=== PATIENT | female | born 1995 | race Caucasian/White ===

== ENCOUNTER 2017-09-16 10:51 | Inpatient (IN) | payer MEDICAID ==
[~2017-09-16 10:51] MED LIST: OXYTOCIN 10 UNIT INJ
[2017-09-16] MEDS ORDERED: METHYLERGONOVINE 0.2 MG INJ IM ×2 (11:30→21:00)
[2017-09-16] MEDS ORDERED: CARBOPROST 250 MCG INJ IM ×2 (11:30→21:00)
[2017-09-16] MEDS ORDERED: OXYTOCIN 30 UNITS/LR 500 ML IV ×3 (11:30→21:00)
[2017-09-16] MEDS ORDERED: MISOPROSTOL 200 MCG TAB PR ×2 (11:30→21:00)
[2017-09-16 11:41] LABS: ADD MAN DIFF? NO
[2017-09-16 11:47] LABS: WHITE BLOOD COUNT 6.7 10^3/ul (4.8-10.8)
[2017-09-16 11:47] LABS: BASOPHILS % 0.4 % (0.0-2.0); EOSINOPHILS % 0.4 % (0.0-7.0); HEMATOCRIT 38.4 % (37.0-47.0); HEMOGLOBIN 12.6 g/dl (12.0-16.0); LYMPHOCYTES # 1.9 10^3/ul (0.8-2.9); LYMPHOCYTES % 27.4 % (15.0-51.0); MEAN CORPUSCULAR HEMOGLOBIN 29.7 pg (29.0-33.0); MEAN CORPUSCULAR HGB CONC 32.8 g/dl (32.0-37.0); MEAN CORPUSCULAR VOLUME 90.6 fl (82.0-101.0); MONOCYTE # 0.3 10^3/ul (0.3-0.9); MONOCYTES % 4.2 % (0.0-11.0); NEUTROPHIL # 4.5 10^3/ul (1.6-7.5); NEUTROPHILS % 67.2 % (39.0-77.0); PLATELET COUNT 141 10^3/UL (140-415); RED BLOOD COUNT 4.24 10^6/ul (4.20-5.40); RED CELL DISTRIBUTION WIDTH 14.7 % (11.5-14.5)
[2017-09-16] MEDS: LACTATED RINGER'S 1,000 ML IV ×3 (11:52→21:15)
[2017-09-16 12:19] LABS: INR 0.93; PROTIME 12.6 Sec (11.9-14.9)
[2017-09-16 12:20] LABS: PARTIAL THROMBOPLASTIN TIME 27.6 Sec (25.0-35.0)
[2017-09-16 12:50] LABS: HEPATITIS B SURFACE ANTIGEN NEGATIVE (NEGATIVE)
[2017-09-16] MEDS ORDERED: EPHEDrine SULFATE 50 MG/5 ML SYG (15:07)
[2017-09-16] MEDS ORDERED: OXYTOCIN 10 UNIT INJ (15:07)
[2017-09-16] MEDS ORDERED: METOCLOPRAMIDE 10 MG INJ (15:07)
[2017-09-16] MEDS ORDERED: morphine SULFATE/PF (10 MG/10 ML) INJ (15:07)
[2017-09-16] MEDS ORDERED: ONDANSETRON 4 MG INJ (15:07)
[2017-09-16] MEDS ORDERED: DIPHENHYDRAMINE 50 MG INJ IV (17:00)
[2017-09-16] MEDS ORDERED: NALOXONE (0.4 MG/ML) INJ IV (17:00)
[2017-09-16] MEDS ORDERED: morphine 2 MG INJ IV ×2 (17:00)
[2017-09-16] MEDS ORDERED: EPHEDrine SULFATE 50 MG/5 ML SYG IV (17:00)
[2017-09-16] MEDS ORDERED: ONDANSETRON 4 MG INJ IV (17:00)
[2017-09-16] MEDS: OXYTOCIN 30 UNITS/LR 500 ML IV (17:14)
[2017-09-16] MEDS: CEFAZOLIN 2 GM/50 ML (PMX) 50 ML IVPB (17:23)
[2017-09-16] MEDS: morphine SULFATE/PF (10 MG/10 ML) INJ SPINAL (17:23)
[2017-09-16] MEDS: KETOROLAC 30 MG INJ IV (19:13)
[2017-09-16] MEDS ORDERED: NA PHOSPHATE/BIPHOS 133 ML ENEMA PR (21:00)
[2017-09-16] MEDS: SENNA/DOCUSATE NA (8.6MG/50MG) TAB PO (21:00)
[2017-09-16] MEDS: CEFAZOLIN 2 GM/50 ML (PMX) 50 ML IV (22:32)
[2017-09-16 22:38] LABS: RAPID PLASMA REAGIN NONREACTIVE (NR)
[2017-09-17] MEDS: LANOLIN 7 GM TUBE TOP (05:26)
[2017-09-17] MEDS: CLINDAMYCIN 300 MG CAP PO ×4 (05:26→17:32)
[2017-09-17] MEDS: LACTATED RINGER'S 1,000 ML IV (05:27)
[2017-09-17] MEDS: CEFAZOLIN 2 GM/50 ML (PMX) 50 ML IV ×2 (06:28→14:00)
[2017-09-17 08:18] LABS: ADD MAN DIFF? NO
[2017-09-17 08:21] LABS: WHITE BLOOD COUNT 7.3 10^3/ul (4.8-10.8)
[2017-09-17 08:21] LABS: BASOPHILS % 0.3 % (0.0-2.0); EOSINOPHILS % 0.5 % (0.0-7.0); HEMATOCRIT 31.5 % (37.0-47.0); HEMOGLOBIN 10.6 g/dl (12.0-16.0); LYMPHOCYTES # 1.3 10^3/ul (0.8-2.9); MEAN CORPUSCULAR HEMOGLOBIN 30.6 pg (29.0-33.0); MEAN CORPUSCULAR HGB CONC 33.7 g/dl (32.0-37.0); MONOCYTE # 0.4 10^3/ul (0.3-0.9); MONOCYTES % 5.7 % (0.0-11.0); NEUTROPHIL # 5.5 10^3/ul (1.6-7.5); NEUTROPHILS % 75.1 % (39.0-77.0); PLATELET COUNT 109 10^3/UL (140-415); RED BLOOD COUNT 3.46 10^6/ul (4.20-5.40); RED CELL DISTRIBUTION WIDTH 14.5 % (11.5-14.5)
[2017-09-17] MEDS: SENNA/DOCUSATE NA (8.6MG/50MG) TAB PO ×2 (09:13→22:04)
[2017-09-17] MEDS: KETOROLAC 30 MG INJ IV (13:57)
[2017-09-17] MEDS: IBUPROFEN 800 MG TAB PO ×2 (17:48→22:00)
[2017-09-17] MEDS: BISACODYL 10 MG SUPP PR (18:47)
[2017-09-17] MEDS: HYDROCODONE/APAP (5/325) TAB PO (22:05)
[2017-09-18] MEDS: HYDROCODONE/APAP (5/325) TAB PO ×4 (02:39→18:41)
[2017-09-18] MEDS: IBUPROFEN 800 MG TAB PO ×3 (05:31→21:53)
[2017-09-18] MEDS: CLINDAMYCIN 300 MG CAP PO ×5 (05:32→23:55)
[2017-09-18] MEDS: SENNA/DOCUSATE NA (8.6MG/50MG) TAB PO ×2 (08:22→20:45)
[2017-09-18] MEDS: OXYCODONE/ACETAMINOPHEN (5/325) TAB PO (12:14)
[2017-09-19] MEDS: OXYCODONE/ACETAMINOPHEN (5/325) TAB PO ×2 (03:56→10:24)
[2017-09-19] MEDS: CLINDAMYCIN 300 MG CAP PO ×2 (05:37→11:59)
[2017-09-19] MEDS: IBUPROFEN 800 MG TAB PO ×2 (05:37→13:18)
[2017-09-19] MEDS: DIPHTH/TET/ACEL PERTUSS (ADULT) 0.5 ML VIAL IM* (09:00)
[2017-09-19] MEDS: SENNA/DOCUSATE NA (8.6MG/50MG) TAB PO (10:23)
== END 2017-09-19 16:05 | disposition home or self-care (01) | DRG 766 ==
LOC: L-D 10:51 → PP1 20:19
PROVIDERS: Obstetrics & Gynecology
PROC: 10D00Z1 Extraction of Products of Conception, Low, Open Approach (ICD-10-PCS; principal; 2017-09-16 14:00)
PROC: 4A1HXCZ Monitoring of Products of Conception, Cardiac Rate, External Approach (ICD-10-PCS; 2017-09-16 14:00)
DX: O34.219 Maternal care for unspecified type scar from previous cesarean delivery (principal); Z37.0 Single live birth; Z3A.39 39 weeks gestation of pregnancy
CPT/HCPCS: 85025; 85610; 85730; 86592; 86850; 86900; 86901; 87340; 90715; 94760; 99464

== ENCOUNTER → 2018-04-30 | Outpatient (CLI) | payer OTHER | END | disposition home or self-care (01) | LOC: U/S 09:47 | DX: O36.71X0 Maternal care for viable fetus in abdominal pregnancy, first trimester, not applicable or unspecified (principal); Z3A.01 Less than 8 weeks gestation of pregnancy | CPT/HCPCS: 76801; 76817 ==

== ENCOUNTER 2018-11-29 18:13 | Outpatient (CLI) | payer OTHER ==
[2018-11-29 20:18] LABS: ADD UMIC YES; UR ASCORBIC ACID 40 mg/dL (NEGATIVE); UR BACTERIA FEW /HPF (NONE SEEN); UR BILIRUBIN (Dip) NEGATIVE (NEGATIVE); UR BLOOD (Dip) 1+ mg/dL (NEGATIVE); UR CLARITY CLOUDY (CLEAR); UR COLOR AMBER (YELLOW); UR GLUCOSE (Dip) NEGATIVE (NEGATIVE); UR KETONES (Dip) TRACE mg/dL (NEGATIVE); UR LEUKOCYTE ESTERASE (Dip) 1+ Leu/ul (NEGATIVE); UR MUCUS FEW /HPF (NONE SEEN); UR NITRITE (Dip) POSITIVE (NEGATIVE); UR RBC 9 /HPF (0-5); UR SPECIFIC GRAVITY (Dip) 1.018 (1.003-1.030); UR SQUAMOUS EPITHELIAL CELL MODERATE /HPF (FEW); UR TOTAL PROTEIN (Dip) NEGATIVE (NEGATIVE); UR UROBILINOGEN (Dip) 1+ mg/dL (NEGATIVE); UR WBC 29 /HPF (0-5)
[2018-11-29] MEDS: LACTATED RINGER'S 1,000 ML IV (20:58)
[2018-11-29] MEDS: CEFTRIAXONE 1 GM/50 ML (PMX) 50 ML IVPB (21:19)
== END 2018-11-29 23:09 | disposition home or self-care (01) ==
LOC: OBT 18:13 → L-D 18:14 → OBT 23:09
DX: O62.9 Abnormality of forces of labor, unspecified (principal); O23.43 Unspecified infection of urinary tract in pregnancy, third trimester; Z3A.37 37 weeks gestation of pregnancy
CPT/HCPCS: 36415; 76818; 81001; 87086; 96360; 96361

== ENCOUNTER 2018-12-11 13:20 | Inpatient (IN) | payer OTHER ==
[2018-12-11] MEDS ORDERED: CARBOPROST 250 MCG INJ IM ×2 (13:30→20:30)
[2018-12-11] MEDS ORDERED: MISOPROSTOL 200 MCG TAB PR ×2 (13:30→20:30)
[2018-12-11] MEDS ORDERED: METHYLERGONOVINE 0.2 MG INJ IM ×2 (13:30→20:30)
[2018-12-11] MEDS ORDERED: OXYTOCIN 30 UNITS/LR 500 ML IV ×2 (13:30→20:30)
[2018-12-11 14:09] LABS: ADD MAN DIFF? NO
[2018-12-11 14:11] LABS: WHITE BLOOD COUNT 6.9 10^3/ul (4.8-10.8)
[2018-12-11 14:12] LABS: BASOPHILS % 0.6 % (0.0-2.0); EOSINOPHILS % 0.4 % (0.0-7.0); HEMATOCRIT 37.8 % (37.0-47.0); HEMOGLOBIN 12.2 g/dl (12.0-16.0); LYMPHOCYTES # 1.6 10^3/ul (0.8-2.9); LYMPHOCYTES % 23.3 % (15.0-51.0); MEAN CORPUSCULAR HGB CONC 32.3 g/dl (32.0-37.0); MEAN CORPUSCULAR VOLUME 92.9 fl (82.0-101.0); MEAN PLATELET VOLUME 12.4 fl (7.4-10.4); MONOCYTE # 0.4 10^3/ul (0.3-0.9); MONOCYTES % 5.1 % (0.0-11.0); NEUTROPHIL # 4.8 10^3/ul (1.6-7.5); PLATELET COUNT 140 10^3/UL (140-415); RED BLOOD COUNT 4.07 10^6/ul (4.20-5.40); RED CELL DISTRIBUTION WIDTH 13.5 % (11.5-14.5)
[2018-12-11] MEDS: LACTATED RINGER'S 1,000 ML IV (14:24)
[2018-12-11 14:31] LABS: INR 0.89; PROTIME 12.2 Sec (11.9-14.9)
[2018-12-11 15:03] LABS: HEPATITIS B SURFACE ANTIGEN NEGATIVE (NEGATIVE)
[2018-12-11] MEDS ORDERED: DEXAMETHASONE 4 MG/ML 1 ML INJ (16:07)
[2018-12-11] MEDS ORDERED: ONDANSETRON 4 MG INJ (16:08)
[2018-12-11 16:32] LABS: RAPID PLASMA REAGIN NONREACTIVE (NR)
[2018-12-11] MEDS ORDERED: morphine SULFATE/PF (10 MG/10 ML) INJ (17:22)
[2018-12-11] MEDS: ACETAMINOPHEN 500 MG TAB PO (17:28)
[2018-12-11] MEDS ORDERED: ZOLPIDEM 5 MG TAB PO ×2 (17:30→21:00)
[2018-12-11] MEDS ORDERED: ONDANSETRON 4 MG INJ IV ×2 (17:30→21:00)
[2018-12-11] MEDS ORDERED: NALOXONE (0.4 MG/ML) INJ IV ×2 (17:30→21:00)
[2018-12-11] MEDS ORDERED: HYDROmorphONE 0.5 MG/0.5 ML SYG IV ×3 (17:30→21:00)
[2018-12-11] MEDS ORDERED: KETOROLAC 30 MG INJ IV (17:30)
[2018-12-11] MEDS ORDERED: DIPHENHYDRAMINE 50 MG INJ IV ×2 (17:30→21:00)
[2018-12-11] MEDS: OXYTOCIN 30 UNITS/LR 500 ML IV (17:49)
[2018-12-11] MEDS: AZITHROMYCIN 500MG/NS (PMX) 250 ML IVPB (18:40)
[2018-12-11] MEDS: KETOROLAC 30 MG INJ IV (18:41)
[2018-12-11] MEDS: CEFAZOLIN 2 GM/50 ML (PMX) 50 ML IVPB (18:43)
[2018-12-11] MEDS ORDERED: NA PHOSPHATE/BIPHOS 133 ML ENEMA PR (20:30)
[2018-12-11] MEDS: HYDROmorphONE 0.5 MG/0.5 ML SYG IV (21:48)
[2018-12-11] MEDS: IBUPROFEN 800 MG TAB PO (22:00)
[2018-12-11] MEDS: SENNA/DOCUSATE NA (8.6MG/50MG) TAB PO (22:19)
[2018-12-12] MEDS: LACTATED RINGER'S 1,000 ML IV ×4 (00:22→17:00)
[2018-12-12] MEDS: CEFAZOLIN 2 GM/50 ML (PMX) 50 ML IVPB ×3 (00:48→15:38)
[2018-12-12] MEDS: CLINDAMYCIN 300 MG CAP PO ×5 (05:34→23:47)
[2018-12-12] MEDS: KETOROLAC 30 MG INJ IV ×2 (05:34→11:46)
[2018-12-12] MEDS: IBUPROFEN 800 MG TAB PO ×3 (06:00→22:26)
[2018-12-12] MEDS: SENNA/DOCUSATE NA (8.6MG/50MG) TAB PO ×2 (08:31→21:00)
[2018-12-12 08:48] LABS: ADD MAN DIFF? NO
[2018-12-12 08:49] LABS: WHITE BLOOD COUNT 13.2 10^3/ul (4.8-10.8)
[2018-12-12 08:49] LABS: BASOPHILS % 0.2 % (0.0-2.0); HEMATOCRIT 33.3 % (37.0-47.0); HEMOGLOBIN 10.8 g/dl (12.0-16.0); LYMPHOCYTES % 15.2 % (15.0-51.0); MEAN CORPUSCULAR HGB CONC 32.4 g/dl (32.0-37.0); MEAN CORPUSCULAR VOLUME 92.5 fl (82.0-101.0); MEAN PLATELET VOLUME 12.9 fl (7.4-10.4); MONOCYTE # 1.1 10^3/ul (0.3-0.9); MONOCYTES % 8.5 % (0.0-11.0); NEUTROPHILS % 75.5 % (39.0-77.0); PLATELET COUNT 139 10^3/UL (140-415); RED CELL DISTRIBUTION WIDTH 13.7 % (11.5-14.5)
[2018-12-12] MEDS ORDERED: PETROLATUM 5 GM OINT TOP (15:33)
[2018-12-12] MEDS: BISACODYL 10 MG SUPP PR (15:38)
[2018-12-12] MEDS: OXYCODONE/ACETAMINOPHEN (5/325) TAB PO (15:54)
[2018-12-12] MEDS: HYDROCODONE/APAP (5/325) TAB PO (20:21)
[2018-12-13] MEDS: LACTATED RINGER'S 1,000 ML IV ×3 (01:00→17:00)
[2018-12-13] MEDS: CLINDAMYCIN 300 MG CAP PO ×3 (05:38→17:15)
[2018-12-13] MEDS: IBUPROFEN 800 MG TAB PO ×3 (05:38→21:29)
[2018-12-13 08:56] LABS: ADD MAN DIFF? NO
[2018-12-13 08:59] LABS: BASOPHILS % 0.4 % (0.0-2.0); EOSINOPHILS # 0.1 10^3/ul (0.0-0.5); EOSINOPHILS % 1.9 % (0.0-7.0); HEMATOCRIT 32.4 % (37.0-47.0); HEMOGLOBIN 10.2 g/dl (12.0-16.0); LYMPHOCYTES # 2.3 10^3/ul (0.8-2.9); LYMPHOCYTES % 30.9 % (15.0-51.0); MEAN CORPUSCULAR HEMOGLOBIN 29.6 pg (29.0-33.0); MEAN CORPUSCULAR HGB CONC 31.5 g/dl (32.0-37.0); MEAN CORPUSCULAR VOLUME 93.9 fl (82.0-101.0); MEAN PLATELET VOLUME 12.4 fl (7.4-10.4); MONOCYTE # 0.4 10^3/ul (0.3-0.9); MONOCYTES % 5.9 % (0.0-11.0); NEUTROPHIL # 4.4 10^3/ul (1.6-7.5); NEUTROPHILS % 60.4 % (39.0-77.0); PLATELET COUNT 125 10^3/UL (140-415); RED BLOOD COUNT 3.45 10^6/ul (4.20-5.40); RED CELL DISTRIBUTION WIDTH 14.6 % (11.5-14.5)
[2018-12-13 08:59] LABS: WHITE BLOOD COUNT 7.3 10^3/ul (4.8-10.8)
[2018-12-13] MEDS: SENNA/DOCUSATE NA (8.6MG/50MG) TAB PO ×2 (09:00→21:00)
[2018-12-13] MEDS: OXYCODONE/ACETAMINOPHEN (5/325) TAB PO ×2 (09:43→17:15)
[2018-12-13] MEDS ORDERED: ACETAMINOPHEN 325 MG TAB PO (15:00)
[2018-12-14] MEDS: CLINDAMYCIN 300 MG CAP PO ×3 (00:13→12:33)
[2018-12-14] MEDS: HYDROCODONE/APAP (5/325) TAB PO ×3 (00:17→12:33)
[2018-12-14] MEDS: IBUPROFEN 800 MG TAB PO (05:35)
[2018-12-14] MEDS: LANOLIN HPA 1 PKT TOP (08:03)
[2018-12-14] MEDS: SENNA/DOCUSATE NA (8.6MG/50MG) TAB PO (09:56)
[2018-12-14] MEDS: DIPHTH/TET/ACEL PERTUSS (ADULT) 0.5 ML VIAL IM* (09:58)
[2018-12-14] MEDS: MEASLES,MUMPS,RUBELLA VACCINE INJ SC* (09:58)
== END 2018-12-14 13:10 | disposition home or self-care (01) | DRG 788 ==
LOC: L-D 13:20 → PP1 20:25
PROVIDERS: Obstetrics & Gynecology
PROC: 10D00Z1 Extraction of Products of Conception, Low, Open Approach (ICD-10-PCS; principal; 2018-12-11 15:30)
DX: O65.5 Obstructed labor due to abnormality of maternal pelvic organs (principal); O34.211 Maternal care for low transverse scar from previous cesarean delivery; Z3A.39 39 weeks gestation of pregnancy; Z37.0 Single live birth
CPT/HCPCS: 85025; 85610; 85730; 86592; 86850; 86900; 86901; 87340; 99464